=== PATIENT | female | born 1965 | race Caucasian/White ===

== ENCOUNTER 2016-12-22 14:35 | Day surgery (SDC) | payer OTHER ==
[2016-12-22] VITALS (13 sets, daily range): BP systolic 119–136; BP diastolic 66–79; PULSE 84–94; RESP 17–20; Ht 160 cm; Wt 78.0 kg
[~2016-12-22] VITALS: Ht 160 cm; Wt 78.0 kg
--- NOTE | 2016-12-22 17:42 | HPN ---
Date/Time of Note Date/Time of Note DATE: 12/22/16 TIME: 17:42 Interval H&P Admission Note Pt. seen H&P reviewed: No system changes CRISTOBAL ROSALES Dec 22, 2016 17:42
[2016-12-22] MEDS ORDERED: MIDAZOLAM 1 MG/ML 2 ML INJ ONE (17:46)
[2016-12-22] MEDS ORDERED: FENTAnyl 50 MCG/ML VIAL ONE ×2 (17:46→18:50)
[2016-12-22] MEDS ORDERED: BUPIVACAINE 0.5% (SDV) 30 ML INJ ONE (18:04)
[2016-12-22] MEDS ORDERED: GELATIN SIZE 100 SPONGE ONE (18:23)
[2016-12-22] MEDS ORDERED: THROMBIN 5000 UNIT VIAL ONE (18:23)
[2016-12-22] MEDS ORDERED: ONDANSETRON 4 MG INJ IV PRN (19:00)
[2016-12-22] MEDS ORDERED: FENTAnyl 50 MCG/ML VIAL IV PRN (19:00)
[2016-12-22] MEDS ORDERED: HYDROmorphONE (0.2 MG/ML) 10ML SYG IV PRN ×2 (19:00)
[2016-12-22] MEDS ORDERED: DIPHENHYDRAMINE 50 MG INJ IV PRN (19:00)
[2016-12-22] MEDS ORDERED: MEPERIDINE 25 MG INJ IV PRN (19:00)
[2016-12-22] MEDS ORDERED: LIDOCAINE 2% (SDV) 5 ML INJ ONE (19:32)
[2016-12-22] MEDS ORDERED: CEFAZOLIN 1 GM INJ ONE (19:32)
[2016-12-22] MEDS ORDERED: PROPOFOL 20 ML ONE (19:32)
[2016-12-22] MEDS ORDERED: ONDANSETRON 4 MG INJ ONE (19:33)
[2016-12-22] MEDS ORDERED: HYDROCODONE/APAP (5/325) TAB PO PRN (20:00)
--- NOTE | 2016-12-22 20:28 | OPR ---
DATE OF OPERATION: 12/22/2016 SURGEON: Cristobal Gallardo MD ANESTHESIA: General. 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 POSTOPERATIVE DIAGNOSIS: Right small finger distal interphalangeal joint (DIPJ ) osteoarthritis. PROCEDURE: 1. Right small finger distal interphalangeal joint (DIPJ) fusion. 2. [place] of bone graft from right distal radius for application in fusion site. OPERATIVE FINDINGS: Severe osteoarthritis with deformity, right small finger DIPJ. INDICATION FOR PROCEDURE: This is a 51-year-old female with longstanding right small finger pain and deformity. She was seen in clinic and elected to proceed with surgical intervention, understanding the risks and benefits. DESCRIPTION OF PROCEDURE: The patient was seen in the preoperative area and all further questions were answered. Again, she gave informed consent, understanding the risks and benefits. She was taken to the operative suite and placed in the supine position. She was placed under general anesthesia and 2 g of Ancef given. Tourniquet placed in the right upper extremity and right upper extremity was prepped with ChloraPrep stick and draped in the usual sterile fashion. Esmarch bandage was used to exsanguinate the extremity and tourniquet inflated to 250 mmHg. A H-type incision over the dorsal aspect of the right small finger DIPJ was utilized, with sharp dissection carried down through skin and subcutaneous tissue. Knife dissection elevated the skin off of the peritenon layer, both proximally and distally. An arthrotomy was made into the DIPJ and extensor tendon flaps were created for repair after the fusion. The osteophytes were debrided, and the joint was brought into a more even surface, in order to make it a straight finger and correct the deformity. A dental pick was used to establish the medullary canal, both proximally and distally, and an Acutrak microguidewire was driven down the center of the shaft of both the middle and distal phalanges. An Acutrak microdrill was used to create a path for the screw, and a 22-mm, Acutrak microscrew was placed down the center of the canal of the middle and distal phalanges, across the distal interphalangeal joint. Prior to placing the compression screw, I turned my attention to the dorsal distal radius, and a 2-cm incision of Duran's tubercle was utilized, with sharp dissection carried down through skin and subcutaneous tissue. A curette was used to enter the dorsal distal radius medullary canal, and bone graft was obtained using a curette and placed into a specimen cup. The dorsal distal radius wound was copiously irrigated and Gelfoam was placed into the bony defect. Skin was closed with 4-0 nylon. Bone graft was taken back to the small finger distal interphalangeal joint fusion site, and was packed generously into the fusion site, prior to compression of the Acutrak screw. There was excellent compression and the finger appeared more anatomic after the screw was placed. Guidewire was removed and x-ray imaging confirmed appropriate hardware placement and bony alignment. The wound was irrigated and the extensor tendon was repaired with 4-0 Monocryl. Skin was closed with 5-0 nylon. Xeroform was placed over the wounds, followed by sterile gauze, Webril, and a finger splint, that was then covered with Coban. Tourniquet deflated after 76 minutes and patient was awakened from anesthesia. She was taken to the postoperative suite in stable condition; tolerated the procedure well, without complication. SPECIMENS: None. ESTIMATED BLOOD LOSS: 5 mL. SPONGE, INSTRUMENT AND NEEDLE COUNTS: Correct. TOURNIQUET TIME: Seventy-six minutes. FLUOROSCOPIC IMAGES: Twelve. CONDITION ON DISCHARGE: Stable. Dictated By: CRISTOBAL WHITE/THERESA Conf#: [id number] DID#: [id number] ANDERS
--- NOTE | 2016-12-23 11:09 | RADRPT ---
PROCEDURE: Intraoperative imaging of the right fifth finger with fluoroscopy. CLINICAL INDICATION: Right fifth finger pain. Intraoperative. TECHNIQUE: 13 images of the right fifth finger were obtained in the operating room with an image i ntensifier. No radiologist was in attendance. 20 seconds of fluoroscopy time was used. COMPARISON: No prior study is available for comparison. FINDINGS: Images demonstrate fusion of the fifth distal interphalangeal joint with the screw. IMPRESSION: 1. Intraoperative imaging of the right fifth finger. RPTAT: QQ .Messi Deleon MD, MD Date Time Electronically viewed and signed by .Messi Deleon MD, MD on 12/23/2016 11:09 .R/
== END 2016-12-22 21:10 | disposition home or self-care (01) ==
LOC: SDS 14:35 → EDBD 16:30 → SDS 21:10
PROVIDERS: ATTEND Orthopaedic Surgery Hand Surgery
DX: M19.041 Primary osteoarthritis, right hand (principal); E66.9 Obesity, unspecified; Z68.30 Body mass index [BMI] 30.0-30.9, adult
CPT/HCPCS: 26862; 73140; J0690; J1170; J2250; J2405; J3010; Z7610